=== PATIENT | male | born 1990 | race Caucasian/White ===

== ENCOUNTER 2023-08-02 14:46 | Emergency (ER) | payer OTHER, SELFPAY ==
[2023-08-02 14:47] VITALS: BP 128/69; PULSE 101; RESP 18; TEMP 36.5; O2SAT 97
--- NOTE | 2023-08-02 14:59 | ED.SKABFB ---
HPI - Skin/Abscess/Foreign Bdy General Chief complaint: Skin/Abscess/Foreign Body Stated complaint: L leg bite Source: patient Mode of arrival: ambulatory Limitations: no limitations History of Present Illness HPI narrative: 32-year-old male presents to the ER with -- erythematous papule on the left posterior thigh. No pain/ discharge. No fever or chills. Noticed the spot yesterday The patient found brown recluse spider on his bed and as he room papule to be secondary to spider bite. The patient has a history of MRSA. MD complaint: insect bite/sting Onset (ago): day(s) ( 1 day) Tetanus up to date: unsure ( refused tetanus immunization) Location: LLE Severity: mild Related Data Home Medications Medication Instructions Recorded Confirmed estradiol valerate 20 mg/mL 0.25 mg IM WEEKLY 08/02/23 08/02/23 intramuscular oil finasteride 1 mg tablet 1 mg PO DAILY 08/02/23 08/02/23 Allergies Allergy/AdvReac Type Severity Reaction Status Date / Time No Known Allergies Allergy Unverified 08/02/23 15:02 Review of Systems Review of Systems: All systems reviewed & are unremarkable except as noted in HPI and below PMFSH Past Medical History Medical History (Updated 08/02/23 @ 15:18 by Remberto Thacker MD) MRSA carrier Exam Narrative: afebrile Const: General: healthy appearing and no acute distress Nutritional Appearance: well nourished Orientation/consciousness: patient oriented x3 Limitations: no limitations HENMT: Head: normal to inspection Ears: external ears normal Face/Nose/Sinus: Normal external nose present Face and sinus: normal facial exam Mouth: Yes Normal oral and palatal mucosa present Throat: posterior oropharynx normal Eyes: Conjunctivae: conjunctivae normal Pupils: Equal, round and reactive pupils present EOM: EOMs intact bilaterally Direct Ophthalmoscopy: no photophobia Neck: Neck: normal visual inspection and no lymphadenopathy Chest: Chest palpation & inspection: normal inspection of the chest Resp: Effort & Inspection: normal respiratory effort Auscultation: clear to auscultation bilaterally Cardio: Rate: regular rate Rhythm: regular rhythm GI: Auscultation: normal bowel sounds : General: Yes no CVA tenderness Back/Spine/Pelvis: Back: no CVA tenderness Skin: General skin exam: normal color Other: papular lesion on the back of his left thigh measuring 0.5 cm. No tenderness. No discharge. Neuro: General: patient oriented x3, moves all extremities, no meningeal signs, no focal motor deficits and CN's II-XI intact bilaterally Cranial nerves: Yes Nystagmus not present Speech: normal speech Gait exam (Neuro): Normal gait present Extrem: General: normal to inspection, no clubbing, cyanosis or edema and no pedal edema Psych: Mental Status: mental status grossly normal Affect: normal affect Attitude: cooperative Course Course Emergency Course: Folliculitis unlikely to be a brown recluse spider bite. Vital Signs Vital signs: Vital Signs Temperature 36.5 C 08/02/23 14:47 Pulse Rate 101 H 08/02/23 14:47 Respiratory Rate 18 08/02/23 14:47 Blood Pressure 128/69 08/02/23 14:47 Pulse Oximetry 97 08/02/23 14:47 Oxygen Delivery Room Air 08/02/23 14:47 Temperature 36.5 C 08/02/23 14:47 Pulse Rate 101 H 08/02/23 14:47 Respiratory Rate 18 08/02/23 14:47 Blood Pressure 128/69 08/02/23 14:47 Pulse Oximetry 97 08/02/23 14:47 Oxygen Delivery Room Air 08/02/23 14:47 MDM - Skin/Abscess/Foreign Bdy MDM Narrative Medical decision making narrative: Folliculitis Differential Diagnosis Differential diagnosis: Likely abscess of skin or subcutaneous tissue Discharge Plan Discharge Clinical Impression: Folliculitis Patient Disposition: Home, Self-Care Condition: Stable Instructions: Antibiotic Form, Folliculitis (ED) Patient Language: Citizen Of [place] Prescriptions: New clindamycin HCl 300 mg c
== END 2023-08-02 15:24 | disposition home or self-care (01) ==
PROVIDERS: Emergency Provider Internal Medicine Critical Care Medicine
DX: L73.9 Follicular disorder, unspecified (principal)
CPT/HCPCS: 99283

== ENCOUNTER 2023-08-20 23:24 | Emergency (ER) | payer OTHER, SELFPAY ==
--- NOTE | ~2023-08-20 | XR_ITS ---
AP and oblique views of the right ribs Clinical History: Pain Findings: No rib fracture is seen. Osseous alignment is anatomic. Lungs are clear, without focal cons olidation or pleural effusion. Cardiomediastinal contour is within normal limits. Soft tissues are un remarkable. Impression: No rib fracture is seen. Reviewed, dictated and finalized at [facility]. Impression: No rib fracture is seen.
[2023-08-20 23:27] VITALS: BP 128/91; PULSE 92; RESP 18; TEMP 36.8; O2SAT 100
--- NOTE | 2023-08-21 00:08 | ED.GENADULT ---
HPI - General Adult General Chief complaint: Unspecified Stated complaint: rib pain Time Seen by Provider: 08/20/23 23:31 Source: patient Mode of arrival: ambulatory Limitations: no limitations History of Present Illness HPI narrative: Patient is a 32-year-old male with right rib pain with no definite injury. He has been having pain for the past few days. Onset (ago): day(s) (3) Location: chest ( Right ribs mid axillary line; mid chest level) Radiation: non-radiation Severity: moderate Severity scale (1-10): 4 Quality: sharp Pain Consistency: constant Relieving factors: immobilization Exacerbating factors: movement Associated symptoms: denies other symptoms Treatments prior to arrival: none Related Data Home Medications Medication Instructions Recorded Confirmed estradiol valerate 20 mg/mL 0.25 mg IM WEEKLY 08/02/23 08/20/23 intramuscular oil Allergies Allergy/AdvReac Type Severity Reaction Status Date / Time No Known Allergies Allergy Unverified 08/02/23 15:02 Review of Systems Review of Systems: All systems reviewed & are unremarkable except as noted in HPI and below Constitutional: Constitutional: Reports no additional constitutional complaints Eyes: Eyes: Reports no additional eye complaints ENT: Reports system reviewed and no additional complaints, except as documented Cardiovascular: Cardiovascular: Reports no additional cardiovascular complaints Respiratory: Respiratory: Reports no additional respiratory complaints Gastrointestinal: Gastrointestinal: Reports no additional gastrointestinal complaints Genitourinary: Genitourinary: Reports no additional male genitourinary complaints Musculoskeletal: Musculoskeletal: Reports no additional musculoskeletal complaints Integumentary/Breasts: Skin/Breast: Reports system reviewed and no additional complaints, except as docu Neurologic: Reports system reviewed and no additional complaints, except as documented Psychiatric: Psychiatric: Reports no additional psychiatric complaints Endocrine: Endocrine: Reports no additional endocrine complaints Hematologic/Lymphatic: Hematologic/Lymphatic: Reports no additional hematologic/lymphatic complaints Allergic/Immunologic: Allergic/Immunologic: Reports no additional allergic/immunologic complaints PMFSH Past Medical History Medical History MRSA carrier Exam Const: General: cooperative, healthy appearing and comfortable; No anxious HENMT: Head: normal to inspection, No palpable skull fracture present and normocephalic Eyes: General: appearance normal, both eyes and all related structures Visual Sandoval: normal visual sandoval by confrontation Alignment and Position: alignment normal Neck: Neck: normal visual inspection, full ROM and no lymphadenopathy Chest: Chest palpation & inspection: normal inspection of the chest, abnormal palpation of chest wall and normal inspection of the chest Other: tender right ribs mid axillary line ribs 6 through 8 Resp: Effort & Inspection: normal respiratory effort, able to speak in complete sentences and normal respiratory pattern Auscultation: clear to auscultation bilaterally and bronchovesicular breath sounds Cardio: Jugular venous distension: no JVD Palpation: normal PMI Rate: regular rate Rhythm: regular rhythm Heart sounds: S1 normal heart sound present and S2 normal heart sound present GI: Inspection: normal to inspection, no abdominal wall ecchymosis and no edema GI Palp: No abdominal tenderness Auscultation: normal bowel sounds and bowels sounds normal Neuro: General: oriented to person, oriented to place, oriented to time, patient oriented x3, gait normal, tone normal and moves all extremities Psych: Appearance: grossly normal, well kempt and not disheveled Mental Status: mental status grossly normal Course Vital Signs Vital signs: Vital Signs Temperature 36.8 C 08/20/23
--- NOTE | 2023-08-21 00:52 | ED_ITS ---
HPI - General Adult General Chief complaint: Unspecified Stated complaint: rib pain Time Seen by Provider: 08/20/23 23:31 Source: patient Mode of arrival: ambulatory Limitations: no limitations History of Present Illness Location: chest ( Right ribs mid axillary line; mid chest level) Severity scale (1-10): 4 Quality: sharp Relieving factors: immobilization Exacerbating factors: movement Associated symptoms: denies other symptoms Treatments prior to arrival: none Related Data Home Medications Medication Instructions Recorded Confirmed estradiol valerate 20 mg/mL 0.25 mg IM WEEKLY 08/02/23 08/20/23 intramuscular oil Allergies Allergy/AdvReac Type Severity Reaction Status Date / Time No Known Allergies Allergy Unverified 08/02/23 15:02 COUNTS INCLUDE 234 BEDS AT THE [facility] Past Medical History Medical History MRSA carrier Course Vital Signs Vital signs: Vital Signs Temperature 36.8 C 08/20/23 23:27 Pulse Rate 92 08/20/23 23:27 Respiratory Rate 18 08/20/23 23:27 Blood Pressure 128/91 H 08/20/23 23:27 Pulse Oximetry 100 08/20/23 23:27 Oxygen Delivery Room Air 08/20/23 23:27 Temperature 36.8 C 08/20/23 23:27 Pulse Rate 92 08/20/23 23:27 Respiratory Rate 18 08/20/23 23:27 Blood Pressure 128/91 H 08/20/23 23:27 Pulse Oximetry 100 08/20/23 23:27 Oxygen Delivery Room Air 08/20/23 23:27 Medical Decision Making Vital Signs Vital Signs: Vital Signs Temperature 36.8 C 08/20/23 23:27 Pulse Rate 92 08/20/23 23:27 Respiratory Rate 18 08/20/23 23:27 Blood Pressure 128/91 H 08/20/23 23:27 Pulse Oximetry 100 08/20/23 23:27 Oxygen Delivery Room Air 08/20/23 23:27 Temperature 36.8 C 08/20/23 23:27 Pulse Rate 92 08/20/23 23:27 Respiratory Rate 18 08/20/23 23:27 Blood Pressure 128/91 H 08/20/23 23:27 Pulse Oximetry 100 08/20/23 23:27 Oxygen Delivery Room Air 08/20/23 23:27 Discharge Plan Discharge Clinical Impression: Rib sprain Qualifiers: Encounter type: initial encounter Qualified Code(s): S23.41XA - Sprain of ribs, initial encounter Patient Disposition: Home, Self-Care Condition: Stable Instructions: Sprain (ED) Additional Instructions: Please follow-up with the primary doctor in the next week. Prescriptions: New ibuprofen 800 mg tablet 800 mg PO TID PRN (Reason: pain) Qty: 20 0RF No Action estradiol valerate 20 mg/mL oil 0.25 mg IM WEEKLY Follow-up/Referrals: UNKNOWN,DOCTOR [Primary Care Provider] - Stand Alone Forms: Work/School Release IP Time of Disposition: 00:48
[2023-08-21] MEDS: IBUPROFEN 400 MG TABLET 800 MG PO (00:53)
== END 2023-08-21 00:56 | disposition home or self-care (01) ==
PROVIDERS: Emergency Provider Emergency Medicine
DX: S23.41XA Sprain of ribs, initial encounter (principal); X58.XXXA Exposure to other specified factors, initial encounter
CPT/HCPCS: 71100; 99283; A9270

== ENCOUNTER 2024-04-08 13:29 | Emergency (ER) | payer OTHER, SELFPAY ==
[2024-04-08 13:29] VITALS: BP 112/74; PULSE 84; RESP 18; TEMP 37.3; O2SAT 100
[2024-04-08 13:30] VITALS: BP 112/74; PULSE 84; RESP 18; TEMP 37.3; O2SAT 100
[2024-04-08 14:15] LABS: Influenza A QL RT-PCR Negative (Negative); Influenza B QL RT-PCR Negative (Negative); RSV RNA, RT-PCR Negative (Negative); SARS-CoV-2 RNA PCR Positive (Negative)
--- NOTE | 2024-04-08 14:20 | PC.NURSE ---
PT IS RESTING ON STRETCHER IN EXAM ROOM AT THIS TIME AWAITING ERP DECISION. PT DENIES ANY NEEDS OR COMPLAINTS. WILL CONTINUE TO MONITOR.
--- NOTE | 2024-04-08 14:21 | ED_ITS ---
HPI - URI/Sore Throat General Chief Complaint: Upper Respiratory Infection Stated Complaint: nausea and vomiting Time Seen by Provider: 04/08/24 13:37 Source: patient Mode of arrival: ambulatory Limitations: no limitations History of Present Illness HPI Narrative: Patient is a 33-year-old male with significant past medical history that presents today with upper respiratory symptoms. Patient has cough, congestion, rhinorrhea for the last 4 days. Patient also has had some nausea as well. He does have some COVID like symptoms so we will swab for COVID and flu. He denies any fevers or sick contacts. MD elicited complaint: cough, sore throat and rhinorrhea Onset (ago): day(s) Consistency: constant Severity: mild Description of mucous: yellow and green Able to tolerate fluids by mouth: Yes Exacerbating factors: exertion Relieving factors: nothing Associated symptoms: chills, myalgias, headache, rhinorrhea, nasal congestion and sore throat Related Data Home Medications ?Medication ?Instructions ?Recorded ?Confirmed ?Last Taken ?Type estradiol valerate 20 mg/mL 0.25 mg IM WEEKLY 08/02/23 08/20/23 Unknown History intramuscular oil finasteride 1 mg tablet mg 04/08/24 Unknown History Allergies Allergy/AdvReac Type Severity Reaction Status Date / Time No Known Allergies Allergy Unverified 04/08/24 13:38 Review of Systems Review of Systems: All systems reviewed & are unremarkable except as noted in HPI and below Constitutional: Constitutional: Reports as per HPI Eyes: Eyes: Reports no additional eye complaints ENT: Reports nasal congestion and Reports sore throat Cardiovascular: Cardiovascular: Reports no additional cardiovascular complaints Respiratory: Respiratory: Reports as per HPI, Reports chest congestion and Reports cough Gastrointestinal: Gastrointestinal: Reports no additional gastrointestinal complaints Genitourinary: Genitourinary: Reports no additional male genitourinary complaints Musculoskeletal: Musculoskeletal: Reports no additional musculoskeletal complaints Integumentary/Breasts: Skin/Breast: Reports system reviewed and no additional complaints, except as docu Neurologic: Reports system reviewed and no additional complaints, except as documented Psychiatric: Psychiatric: Reports no additional psychiatric complaints Endocrine: Endocrine: Reports no additional endocrine complaints Hematologic/Lymphatic: Hematologic/Lymphatic: Reports no additional hematologic/lymphatic complaints Allergic/Immunologic: Allergic/Immunologic: Reports no additional allergic/i mmunologic complaints PMFSH Past Medical History Medical History MRSA carrier Exam Const: General: healthy appearing Nutritional Appearance: well nourished Orientation/consciousness: patient oriented x3 HENMT: Head: normal to inspection Ears: external ears normal Face/Nose/Sinus: Normal external nose present Face and sinus: normal facial exam Mouth: Yes Normal oral and palatal mucosa present Eyes: Conjunctivae: conjunctivae normal Pupils: Equal, round and reactive pupils present EOM: EOMs intact bilaterally Neck: Neck: normal visual inspection Chest: Chest palpation & inspection: normal inspection of the chest Resp: Effort & Inspection: normal respiratory effort Auscultation: clear to auscultation bilaterally Cardio: Rate: regular rate Rhythm: regular rhythm GI: GI Palp: Yes Soft to palpation Back/Spine/Pelvis: Back: no CVA tenderness Skin: General skin exam: normal color Rashes: no rashes Wounds: no wounds Neuro: General: patient oriented x3 Cranial nerves: Yes Nystagmus not present Extrem: General: normal to inspection Psych: Mental Status: mental status grossly normal Course Vital Signs Vital signs: Vital Signs Temperature 99.2 F 04/08/24 13:29 Pulse Rate 84 04/08/24 13:29 Respiratory Rate 18 04/08/24 13:29 Blood Pressure 112/74 04/08/24 13:29 Pulse Oximetry 100 04/08/24 13:29 Oxygen Delivery Room Air 04/08/24 13:29 Temperature 99.2 F 04/08/24 13:30 Pulse Rate 84 04/08/24 13:30 Respiratory Rate 18 04/08/24 13:30 Blood Pressure 112/74 04/08/24 13:30 Pulse Oximetry 100 04/08/24 13:30 Oxygen Delivery Room Air 04/08/24 13:30 MDM - URI/Sore Throat MDM Narrative Medical decision making narrative: Patient has not had a sick contact with his URI symptoms today and loaded a gastrostomy tube as well. Because this will swell number COVID flu and RSV. COVID test was positive. Will give him a shot of Decadron and sent him home with a Medrol Dosepak and doxycycline. He was instructed on CDC guidelines staying at home for 5 days quarantine and that and wearing mask now for 5 days afterwards. Differential Diagnosis Differential diagnosis: Likely upper respiratory infection and other ( COVID) Medical Records Attestation: I reviewed the patient's medical records. Lab Data Attestation: I reviewed the patient's lab results. Labs: Lab Results 04/08/24 Range/Units 13:35 Influenza A (RT-PCR) Negative (Negative) Influenza B (RT-PCR) Negative (Negative) RSV (RT-PCR) Negative (Negative) SARS-CoV-2 RNA (RT-PCR) Positive A (Negative) Imaging Data Attestation: I personally reviewed and interpreted this imaging study as follow s: Discharge Plan Discharge Clinical Impression: COVID, Upper respiratory infection Patient Disposition: Home, Self-Care Condition: Stable Instructions: COVID-19 (Coronavirus Disease 2019) (ED) Additional Instructions: is started on quarantine instructions to quit his home for 5 days and that wear mask for 5 days out. Also start if he gets worse and has tried any shortness of breath or chest pain to return to the emergency department. Take steroids as instructed and antibiotics as instructed as well. Patient Language: [place] Prescriptions: New methylprednisolone [Medrol (Angel)] 4 mg tablets,dose pack See Rx Instructions .ROUTE .COMPLEX Qty: 21 0RF Rx Instructions: orally per package directions doxycycline hyclate 100 mg tablet 100 mg PO BID Qty: 20 0RF No Action estradiol valerate 20 mg/mL oil 0.25 mg IM WEEKLY finasteride 1 mg tablet ibuprofen 800 mg tablet 800 mg PO TID PRN (Reason: pain) Qty: 20 0RF Follow-up/Referrals: UNKNOWN,DOCTOR [Primary Care Provider] - Time of Disposition: 14:37
[2024-04-08] MEDS: dexAMETHasone SOD PHOS INJ 10 MG/ML 1 ML VIAL IM (14:38)
[2024-04-08 14:45] VITALS: BP 96/62; PULSE 82; RESP 18; TEMP 37.2; O2SAT 98
== END 2024-04-08 14:45 | disposition home or self-care (01) ==
PROVIDERS: Emergency Provider Family Medicine
DX: U07.1 COVID-19 (principal)
CPT/HCPCS: 87637; 96372; 99283; J1100

== ENCOUNTER 2024-09-10 17:15 | Emergency (ER) | payer OTHER, SELFPAY ==
[2024-09-10 17:15] VITALS: BP 117/69; PULSE 78; RESP 14; TEMP 37.2; O2SAT 99
[2024-09-10] MEDS: LIDOCAINE 1% LOCAL INJ 10 ML VIAL 20 ML INFILTRATE (17:31)
--- NOTE | 2024-09-10 17:54 | ED.SKABFB ---
HPI - Skin/Abscess/Foreign Bdy General Chief complaint: Skin/Abscess/Foreign Body Stated complaint: abscess Time Seen by Provider: 09/10/24 17:17 Source: patient Mode of arrival: ambulatory Limitations: no limitations History of Present Illness HPI narrative: This is a 34-year-old denies significant past medical history, presenting to the emergency department complaining of a tender nodule just below the left ear. The patient states in nodule has been present there for the past 1 and years. In the past 2 days, he states he squeezed it with drainage some purulent appearing fluid. In the past day, it has B, red, swollen and tender. He denies associated fevers, chills, difficulty swallowing or difficulty breathing. He denies change in hearing. He has no other complaints at this time. Related Data Home Medications ?Medication ?Instructions ?Recorded ?Confirmed ?Last Taken ?Type estradiol valerate 20 mg/mL 0.25 mg IM WEEKLY 08/02/23 08/20/23 Unknown History intramuscular oil finasteride 1 mg tablet mg 04/08/24 Unknown History Allergies Allergy/AdvReac Type Severity Reaction Status Date / Time No Known Allergies Allergy Verified 09/10/24 17:16 Review of Systems Review of Systems: All systems reviewed & are unremarkable except as noted in HPI and below ( HPI) PMFSH Past Medical History Medical History MRSA carrier Surgical History Surgical History No significant past surgical history Social History Social History Smoking status: Never smoker Alcohol intake: never Substance use: never Exam Narrative: GENERAL: Well-developed, well-nourished, and in no acute distress. HEAD: Normocephalic, atraumatic. There is a 2 cm tender, fluctuant, erythematous nodule noted approximately 5 cm inferior to the left ear, overlying the angle of mandible. there is no noted purulent drainage or bleeding. EYES: PERRLA and EOMI. ENT: Nares clear, no rhinorrhea or epistaxis. Mucous membranes moist. Oropharynx without tonsillar hypertrophy exudate or other lesions. Bilateral TMs pearly horton nonbulging. NECK: Supple. No adenopathy or masses. CHEST: Clear to auscultation. No respiratory distress. No wheezes rales or rhonchi HEART: Regular rate and rhythm. No murmur heard. Normal peripheral pulses. EXTREMITIES: Normal range of motion. No edema. SKIN: Warm, dry, no rash. NEURO: Alert and oriented x3. No focal deficit. Moving all 4 limbs spontaneously PSYCH: Normal mood and affect. Course Course Emergency Course: 17:55 - The patient's abscess was incised and drained (please see procedure note). Will discharge with recommendation for wound care and primary care follow-up. I discussed the findings and recommendations with the patient. Discussed return and emergency precautions including signs/symptoms of deep space neck infection and airway compromise. The patient voiced understanding and agreement with the plan. All questions answered to his satisfaction. Vital Signs Vital signs: Vital Signs Temperature 99 F 09/10/24 17:15 Pulse Rate 78 09/10/24 17:15 Respiratory Rate 14 09/10/24 17:15 Blood Pressure 117/69 09/10/24 17:15 Pulse Oximetry 99 09/10/24 17:15 Oxygen Delivery Room Air 09/10/24 17:15 Temperature 98.8 F 09/10/24 18:15 Pulse Rate 78 09/10/24 18:15 Respiratory Rate 16 09/10/24 18:15 Blood Pressure 112/66 09/10/24 18:15 Pulse Oximetry 98 09/10/24 18:15 Oxygen Delivery Room Air 09/10/24 18:15 Procedures Abscess I/D face: Date of Incision: 09/10/24 Time of Incision: 17:45 Side (if applicable): left Local Anesthetic: lidocaine 1% Amount of anesthesia used (mL): 4 Technique: incised with #11 blade Amount of fluid expressed (mL): 5 Irrigation: No Packing used?: none I&D Results: Pus and Blood Complications: pain MDM - Skin/Abscess/Foreign Bdy MDM Narrative Medical decision making narrative: plan: Pain control, incision and drainage, reassess Differential Diagnosis Differential diagnosis: Likely abscess of skin or subcutaneous tissue Discharge Plan Discharge Clinical Impression: Abscess of skin or subcutaneous tissue Qualifiers: Site of cutaneous abscess: face Qualified Code(s): L02.01 - Cutaneous abscess of face Patient Disposition: Home Condition: Stable Instructions: Antibiotic Form, Abscess (ED) Additional Instructions: You were seen in the emergency department. Abscess was drained from the left draw. I recommend hot compresses, NSAIDs for pain and follow-up with a primary care doctor. If you develop difficulty breathing, difficulty swallowing, rapidly spreading neck swelling with increasing pain and fevers, or if you have other emergent concerns for life, limb, or eyesight, return to the emergency department. Patient Language: Maltese Prescriptions: New naproxen 500 mg tablet 500 mg PO BID PRN (Reason: pain) Qty: 20 0RF No Action estradiol valerate 20 mg/mL oil 0.25 mg IM WEEKLY finasteride 1 mg tablet methylprednisolone [Medrol (Angel)] 4 mg tablets,dose pack See Rx Instructions .ROUTE .COMPLEX Qty: 21 0RF Rx Instructions: orally per package directions doxycycline hyclate 100 mg tablet 100 mg PO BID Qty: 20 0RF ibuprofen 800 mg tablet 800 mg PO TID PRN (Reason: pain) Qty: 20 0RF Follow-up/Referrals: UNKNOWN,DOCTOR [Non-Staff] - 1 Week ( contact your primary care doctor for a follow-up appointment next week) Time of Disposition: 17:55
[2024-09-10 18:15] VITALS: BP 112/66; PULSE 78; RESP 16; TEMP 37.1; O2SAT 98
== END 2024-09-10 18:15 | disposition home or self-care (01) ==
LOC: CHSED 18:02
PROVIDERS: Emergency Provider Preventive Medicine Aerospace Medicine; PCP Physician Assistant
DX: L02.01 Cutaneous abscess of face (principal)
CPT/HCPCS: 10060; 99283; J2003